=== PATIENT | male | born 1945 | race Two or more races ===

== ENCOUNTER 2022-06-26 07:22 | Inpatient (IN) | payer OTHER ==
[~2022-06-26] VITALS: Ht 167.6 cm; Wt 81.6 kg
--- NOTE | 2022-06-26 07:50 | NUR ---
PACIENTE ALERTA Y ORIENTADO X3, EN COMPANIA DE ESPOSA QUIEN REFIERE QUE DESDE HACE UNOS CONNELL TIENE DOLOR PELVICO QUE SE IRRADIA HACIA LA ESAPLDA. EN ADICION REFIERE TENER SENSACION DE ARDOR AL ORINAR Y QUE LA MISMA ES DE COLOR WINDY INTENSO. SE MONITOREAN VS Y SE UBICA EN PASILLO
--- NOTE | 2022-06-26 08:35 | NUR ---
SE LLEVA PTE A ESTUDIO DE CT SCAN EN [facility].
--- NOTE | 2022-06-26 09:18 | NUR ---
PTE EVALUADO POR DR. CASTRO. SE ORIENTA PTE Y FAMILIAR SOBRE TX A SEGUIR, EL CUAL REFIEREN ENTENDER. SE COLECTAN MUESTRAS Y SE CANALIZA PTE UTILIZANDO MEDIDAS ASEPTICAS. SE ADM. MEDICAMENTOS MIREYA ORDEN MEDICA BAJO MEDIDAS ASEPTICAS. SE HACE ENTREGA DE ENVASE PARA MUESTRA DE UA Y UC PEND.
--- NOTE | 2022-06-26 15:52 | NUR ---
3:00PM SE RECIBE PTE DLE TURNO ANTERIOR, ALERTA, DESORIENTADO EN IFEANYI ANNEMARIE ESFERAS, UBICADO EN CAMA, NIVEL MAS BAJO, TIAN DE IDENTIFICACION Y BARANDAS ELEVADAS POR PRECAUCION, EN COMPANIA DE FAMILIAR. SE OBSERVA CON BUEN PATRON RESPIRATORIO Y PIEL TIBIA AL TACTO. IV PATENTE Y LITTLE DE EDEMA O ERITEMA RECIBIENDO 0.9% NSS @100ML/HR. PENDIENTE CONSULTA CON DR NICHOLE Y DR STEPHIE GALLEGOS. SE MANTIENE BAJO OBSERVACION. 3:54PM PTE SE ENCUENTRA SIENDO EVALUADO POR EL DR STEPHIE GALLEGOS. SE MANTIENE BAJO OBSERVACION.
== END 2022-07-03 11:18 | disposition home or self-care (01) | DRG 66 ==
LOC: ER 07:22 → SURG 18:53 → SEC-K 18:53 → SURG 20:34
PROVIDERS: ADMIT Internal Medicine; ATTEND Internal Medicine
PROC: B020ZZZ Computerized Tomography (CT Scan) of Brain (ICD-10-PCS; principal; 2022-06-26)
PROC: BW21ZZZ Computerized Tomography (CT Scan) of Abdomen and Pelvis (ICD-10-PCS; 2022-06-26)
PROC: B030ZZZ Magnetic Resonance Imaging (MRI) of Brain (ICD-10-PCS; 2022-06-26)
PROC: B345ZZZ Ultrasonography of Bilateral Common Carotid Arteries (ICD-10-PCS; 2022-06-26)
PROC: B348ZZZ Ultrasonography of Bilateral Internal Carotid Arteries (ICD-10-PCS; 2022-06-26)
PROC: 4A12X4Z Monitoring of Cardiac Electrical Activity, External Approach (ICD-10-PCS; 2022-06-26)
PROC: 3E0F7SF Introduction of Other Gas into Respiratory Tract, Via Natural or Artificial Opening (ICD-10-PCS; 2022-06-26)
PROC: B246ZZZ Ultrasonography of Right and Left Heart (ICD-10-PCS; 2022-06-27)
PROC: B020ZZZ Computerized Tomography (CT Scan) of Brain (ICD-10-PCS; 2022-06-29)
PROC: B020ZZZ Computerized Tomography (CT Scan) of Brain (ICD-10-PCS; 2022-07-02)
DX: I63.89 Other cerebral infarction (principal); I63.512 Cerebral infarction due to unspecified occlusion or stenosis of left middle cerebral artery; F80.2 Mixed receptive-expressive language disorder; R41.82 Altered mental status, unspecified; G93.89 Other specified disorders of brain; F43.22 Adjustment disorder with anxiety; R26.89 Other abnormalities of gait and mobility; I11.9 Hypertensive heart disease without heart failure
CPT/HCPCS: 70544